=== PATIENT | male | born 1950 | race Caucasian/White ===

== ENCOUNTER → 2021-03-08 | Outpatient (CLI) | payer MEDICARE ==
--- NOTE | 2021-03-09 05:18 | CTL ---
EXAMINATION TYPE: CT Low Dose Lung DATE OF EXAM ORDERED: 03/08/2021 HISTORY: 70-year-old male Z87.891 Tobacco use/nicotine dependence. Lung cancer screening CT DLP: [address] CTDI: 3.29 mGy Automated exposure control for dose reduction was used. SCREENING VISIT: Baseline COMPARISON: Radiograph 08/14/2020 TECHNIQUE: Low dose computed tomography scan was performed through the chest with coronal and sagitta l reconstructions. CT DIAGNOSTIC QUALITY: Satisfactory FINDINGS: There is an area of 1.5 cm soft tissue nodularity within the subcutaneous adipose layer lower inner q uadrant of the right breast, axial image 34 series 3. Mild bilateral gynecomastia is also present. Heart normal size without pericardial effusion. LAD coronary artery calcifications are present. Promi nent epicardial fat pad. Ectatic ascending aorta 3.7 cm. Minimal atherosclerotic arch calcifications. Conventional arch vessel branching anatomy. Scattered nonenlarged mediastinal lymph nodes measuring up to 7 mm. No thoracic lymphadenopathy by CT size criteria. Mildly enlarged caliber to the main right and left pulmonary arteries measuring up to 2.9 cm may be s een with pulmonary arterial hypertension. Mild diffuse bronchial wall thickening. 2 adjacent subpleural pulmonary nodules anterolateral right upper lobe, axial image 81 measuring 6 mm and 4 mm. Additional plaque-like nodularity anterolateral left upper lobe, axial images 104 through 98. Nodules here measure up to 7 mm. No consolidation or pleural effusion. Spleen mildly enlarged at 14.3 cm. Artifacts from patient's large body habitus affecting the visualiz ed upper abdomen. Bones: Mild degenerative disc disease throughout the thoracic spine. Normal variant sternal foramen. IMPRESSION: 1. LungRADS 3S, probably benign. Subpleural nodularity in the bilateral upper lobes measuring up to 7 mm on baseline screening. 2. Mild diffuse bronchial wall thickening could represent bronchitis or chronic asthma. 3. Nonspecific 1.5 cm soft tissue nodularity lower inner quadrant right breast. Correlate with physic al exam findings to exclude a small mass. Ultrasound can also be considered. 4. Mild splenomegaly. CT LUNG RAD AND CT CHEST RECOMMENDATION: Lung-Rad 3 Probably Benign: 6 month follow-up LDCT. S Modifier (other clinically significant findings): S, possible 1.5 cm lower inner quadrant right desean ast nodule for which physical examination assessment is recommended and possible diagnostic mammograp hic workup should be considered.
== END | disposition home or self-care (01) ==
LOC: RADCTMAIN 16:33
PROVIDERS: ATTEND Internal Medicine Critical Care Medicine
DX: Z12.2 Encounter for screening for malignant neoplasm of respiratory organs (principal); R91.8 Other nonspecific abnormal finding of lung field; J98.09 Other diseases of bronchus, not elsewhere classified; Z87.891 Personal history of nicotine dependence
CPT/HCPCS: 71271

== ENCOUNTER → 2021-03-19 | Outpatient (CLI) | payer MEDICARE ==
--- NOTE | 2021-03-19 10:21 | USB ---
EXAMINATION TYPE: US breast complete RT DATE OF EXAM: 03/19/2021 COMPARISON: Mammogram 03/19/2021, CT 03/08/2021 HISTORY: Abnormal CT results, breast mass TECHNIQUE: Real-time linear array sonography is performed over the right breast with attention to the lower inner quadrant. FINDINGS: There is an oval hyperechoic area measuring 1.6 x 1.9 x 0.9 cm. There is some apparent shadowing dist al to the circumscribed mass. This is considered suspicious and biopsy is recommended. IMPRESSION: 1. CIRCUMSCRIBED OVAL MASS RIGHT BREAST 4:00 BC POSITION. 2. SUSPICIOUS FINDINGS. 3. BI-RADS 4 RECOMMENDATIONS: 1. ULTRASOUND-GUIDED CORE BIOPSY RIGHT BREAST LESION.
--- NOTE | 2021-03-19 12:18 | MM ---
Reason for exam: clinical finding. Physical Findings: Nurse did not find any significant physical abnormalities on exam. MG 3D Diag Mammo W/Cad JOSEPH Bilateral CC and MLO view(s) were taken. There is no discrete abnormality including area of concern on the right breast. These results were verbally communicated with the patient and result sheet given to the patient on 03/19/21. ASSESSMENT: Incomplete: need additional imaging evaluation, BI-RAD 0 RECOMMENDATION: Ultrasound of the right breast.
== END | disposition home or self-care (01) ==
LOC: RADMAMWWP 08:46
PROVIDERS: ATTEND Internal Medicine Critical Care Medicine
DX: N63.14 Unspecified lump in the right breast, lower inner quadrant (principal)
CPT/HCPCS: 77066; 76641; G0279; 77062

== ENCOUNTER → 2021-03-19 | Outpatient (CLI) | payer MEDICARE ==
--- NOTE | 2021-03-19 15:58 | P.GSHP ---
History of Present Illness H&P Date: 03/19/21 Chief Complaint: right breast lesion on ultrasound Melchor is a 70 year old white male seen in consultation for Dr. Toth regarding a right breast abnormal ultrasound. The patient underwent a low dose chest CT to screen for lung cancer as he is a smoker. This was his first chest CT no lesions of concern were noted in the thoracic cavity however a small lesion was noted in the right breast. He subsequently underwent a bilateral mammogram which was felt to be incomplete and an ultrasound of the right breast was prepped recommended. The ultrasound revealed a 1.9 x 1.6 cm lesion considered suspicious at the 4 o'clock position and ultrasound core biopsy was recommended. The patient does not feel any lumps masses or nodules of concern in either breast. He states approximately a week ago he did have some nipple discharge from the right side. Does not report any trauma to either breast. Caffeine: 2 to 3 pots per day Nicotine: One pack per day for 55 years chocolate: occasional alcohol: none drugs: none Family History: brother: of colon cancer Surgical History: gallbladder appy ankle tendon left knee replacement multiple surgeries for fractures on left lower leg cardiac cath umbilical hernia Medical History: type 2 diabetes lower extremity swelling numb toes Social history: Caffeine: 2-3 pots of coffee per day Nicotine: One pack per day for 55 years Alcohol: Negative Drugs: Negative - Constitutional Constitutional: Denies chills, Denies fever - EENT Comment: wears glasses Ears: bilateral: tinnitus Ears, nose, mouth and throat: Denies headache, Denies sore throat - Breasts Breasts: bilateral: as per HPI - Cardiovascular Cardiovascular: Reports shortness of breath, Denies chest pain - Respiratory Comment: smoker Respiratory: Reports cough - Gastrointestinal Gastrointestinal: Denies abdominal pain, Denies diarrhea, Denies nausea, Denies vomiting - Genitourinary (Male) Comment: urine stream slow and weak Genitourinary: Denies dysuria, Denies hematuria - Musculoskeletal Musculoskeletal: Reports as per HPI - Integumentary Integumentary: Denies pruritus, Denies rash - Neurological Comment: toes numb Neurological: Reports numbness, Denies weakness - Psychiatric Psychiatric: Denies anxiety, Denies depression - Endocrine Comment: diabetes - Hematologic/Lymphatic Comment: baby aspirin - Allergic/Immunologic Allergic/Immunologic: Reports seasonal allergies Medications and Allergies Home Medications Medication Instructions Recorded Confirmed Type Alfuzosin HCl [Uroxatral] 10 mg PO DAILY 03/19/21 03/19/21 History Aspirin 81 mg PO DAILY 03/19/21 03/19/21 History Furosemide [Lasix] 40 mg PO BID 03/19/21 03/19/21 History Potassium Chloride 10 meq PO DAILY 03/19/21 03/19/21 History glipiZIDE [Glucotrol] 10 mg PO DAILY 03/19/21 03/19/21 History Allergies Allergy/AdvReac Type Severity Reaction Status Date / Time cephalexin [From Keflex] Allergy Anaphylaxis Verified 03/19/21 15:21 Iodinated Contrast Media Allergy Rash/Hives Verified 03/19/21 15: lidocaine Allergy Rash/Hives Verified 03/19/21 15:21 Penicillins Allergy Anaphylaxis Verified 03/19/21 15: Sulfa (Sulfonamide Allergy Anaphylaxis Verified 03/19/21 15:21 Antibiotics) Surgical - Exam - General no distress - Eyes normal ocular movement - ENT normal mucosa - Neck trachea midline - Respiratory normal respiratory effort, clear to auscultation - Cardiovascular Heart Sounds: normal: S1, S2 - Abdomen Abdomen: soft - Genitourinary no masses in testicles testicles present - Integumentary Ecchymosis over lower extremities Dark nevus back Small subcutaneous nodule right upper abdomen - Musculoskeletal normal gait - Psychiatric oriented to time, oriented to person, oriented to place, speech is normal, memory intact Breast examination: Right breast multi-positional exam no dominant masses or nodules of concern Right axilla: No adenopathy of concern Left breast: No dominant masses or nodules of concern on multiple positional exam Left axilla: No adenopathy of concern Results Computed tomography scan of chest as well as ultrasound of breast reviewed with Dr. Lopez, nodule right breast approximately 1.9 cm at the 4 o'clock position suspicious Assessment and Plan Assessment: Impression: 1. Radiographic abnormality right breast/1.9 cm nodule on ultrasound recommend biopsy 2. Computed tomography scan of chest subpleural nodularity in the bilateral upper lobes measuring up to 7 mm Mild diffuse bronchial wall thickening Nonspecific 1.5 cm soft tissue breast mass Mild splenomegaly Recommendation lung. 3 probably benign 6 month follow-up low-dose CT 3. Nicotine use for 55 years 4. Diabetes Plan: 1. Ultrasound-guided core biopsy right breast nodularity 2. Continue follow-up as long as per Dr. Toth CC: Dr. Toth
[2021-03-19 16:53] VITALS: BP 103/71; PULSE 87; RESP 16; TEMP 98.3
== END ==
LOC: WWCWWP 14:50
PROVIDERS: ATTEND Surgery
DX: N63.10 Unspecified lump in the right breast, unspecified quadrant (principal); N63.20 Unspecified lump in the left breast, unspecified quadrant; J98.09 Other diseases of bronchus, not elsewhere classified; R16.1 Splenomegaly, not elsewhere classified; D22.5 Melanocytic nevi of trunk; E11.9 Type 2 diabetes mellitus without complications; Z79.84 Long term (current) use of oral hypoglycemic drugs; Z88.0 Allergy status to penicillin; Z88.1 Allergy status to other antibiotic agents; Z88.2 Allergy status to sulfonamides; Z91.041 Radiographic dye allergy status

== ENCOUNTER → 2021-04-06 | Day surgery (SDC) | payer MEDICARE ==
[2021-04-06 12:18] VITALS: RESP 18
[2021-04-06 13:43] VITALS: BP 112/73; PULSE 68; TEMP 97.9
--- NOTE | 2021-04-06 14:25 | USB ---
EXAMINATION TYPE: US biopsy breast VAD RT DATE OF EXAM: 04/06/2021 CLINICAL HISTORY: R92.8 ABNORMAL MAMMOGRAM. TECHNIQUE: Ultrasound guided core biopsy of right 4:00 breast. COMPARISON: NONE FINDINGS: The procedure of ultrasound guided core biopsy was explained to the patient. Benefits, alternatives, and risks were discussed. An informed consent was then obtained. The patient was placed in supine positioning for imaging and for the procedure. The overlying skin was prepped and draped in usual sterile fashion. Lidocaine buffered with bicarbonate was used as anesthetic into the skin and subcutaneous tissue up to area of concern in the right 4:00 breast Under ultrasound guidance, a 12-gauge vacuum assisted biopsy gun device was used to obtain 3 core samples. Following this, a biopsy clip was left in lesion. The patient tolerated the procedure well without any immediate complication. The patient was kept in the radiology department for short stay after the procedure and then discharged home in stable condition. IMPRESSION: Successful, uncomplicated ultrasound guided core biopsy of area of concern in the right 4:00 breast, full pathology results to follow. Pathology Results: Benign RIGHT BREAST, 4:00, ULTRASOUND GUIDED CORE BIOPSY: Hemangioma. Recommendation Follow up mammogram of the right breast in 6 months. FERNANDA
== END ==
LOC: RADUSWWP 11:50
PROVIDERS: ATTEND Surgery
DX: D18.09 Hemangioma of other sites (principal); R92.8 Other abnormal and inconclusive findings on diagnostic imaging of breast
CPT/HCPCS: 88305

== ENCOUNTER → 2021-04-16 | Outpatient (CLI) | payer MEDICARE ==
[2021-04-16 09:58] VITALS: BP 103/68; PULSE 74; RESP 16; TEMP 97.7
--- NOTE | 2021-04-16 10:29 | P.PN ---
Progress Note - Text Progress Note Date: 04/16/21 Melchor is a 70 year old male seen in consultation by Dr. Toth regarding a right breast abnormal ultrasound. The patient had undergone a low-dose chest CT to screen for lung cancer as he is a smoker. This was first chest CT that he had an this revealed no lesions of concern in the thoracic cavity however lesion was seen in the right breast. Mammogram and ultrasound followed which led to a core biopsy of a 1.9 x 1.6 cm lesion. Pathology revealed a hemangioma. The patient tolerated the procedure without difficulty. He is completely asymptomatic from this and will be followed conservatively. Examination: Mild ecchymosis right breast biopsy site no evidence of any infection Impression: Hemangioma right breast/asymptomatic Plan: Repeat right breast ultrasound in 6 months with physician exam at that time CC: DR. Toth
== END ==
LOC: WWCWWP 09:40
PROVIDERS: ATTEND Surgery
DX: D18.09 Hemangioma of other sites (principal); Z88.1 Allergy status to other antibiotic agents; Z91.041 Radiographic dye allergy status; Z88.4 Allergy status to anesthetic agent; Z88.0 Allergy status to penicillin; Z88.2 Allergy status to sulfonamides

== ENCOUNTER → 2021-08-23 | Outpatient (CLI) | payer MEDICARE ==
--- NOTE | 2021-08-23 10:51 | US ---
EXAMINATION TYPE: US venous doppler duplex LE DATE OF EXAM: 08/23/2021 10:35 AM COMPARISON: NONE CLINICAL HISTORY: R60.0 EDEMA. Leg swelling SIDE PERFORMED: Bilateral TECHNIQUE: The lower extremity deep venous system is examined utilizing real time linear array sonog ly with graded compression, doppler sonography and color-flow sonography. VESSELS IMAGED: Common Femoral Vein Deep Femoral Vein Greater Saphenous Vein * Femoral Vein Popliteal Vein Small Saphenous Vein * Proximal Calf Veins (* superficial vessels) Right Leg: Negative for DVT Left Leg: Negative for DVT IMPRESSION: No evidence for DVT at this time.
== END | disposition home or self-care (01) ==
LOC: RADUSWWP 10:09
PROVIDERS: ATTEND Family Medicine
DX: R60.0 Localized edema (principal); M79.89 Other specified soft tissue disorders
CPT/HCPCS: 93970

== ENCOUNTER → 2021-11-02 | Outpatient (CLI) | payer MEDICARE | LOC: CPPFTMAIN 11:16 | PROVIDERS: ATTEND Internal Medicine Critical Care Medicine | DX: J44.9 Chronic obstructive pulmonary disease, unspecified (principal); Z88.1 Allergy status to other antibiotic agents; Z91.041 Radiographic dye allergy status; Z88.0 Allergy status to penicillin; Z88.2 Allergy status to sulfonamides; Z88.4 Allergy status to anesthetic agent | CPT/HCPCS: 94060; 94726; 94729 ==

== ENCOUNTER → 2022-03-14 | Outpatient (CLI) | payer MEDICARE ==
--- NOTE | 2022-03-14 16:19 | CTL ---
EXAMINATION TYPE: CT Low Dose Lung DATE OF EXAM ORDERED: 03/14/2022 HISTORY: . Lung cancer screening CT DLP: 146.[address] CTDI: 4.30 mGy Automated exposure control for dose reduction was used. SCREENING VISIT: Follow-up COMPARISON: 03/08/2021 TECHNIQUE: Low dose computed tomography scan was performed through the chest at 1 mm thick sections a nd reconstructed images in the coronal plane at [address] DIAGNOSTIC QUALITY: Satisfactory FINDINGS: LUNG NODULES: None. LUNGS: COPD: Severity: None Fibrosis: Severity: None Lymph nodes: None Other findings: None RIGHT PLEURAL SPACE: Effusion: None Calcification: None Thickening: None Pneumothorax: None LEFT PLEURAL SPACE: Effusion: None Calcification: None Thickening: None Pneumothorax: None HEART: Heart Size: Normal Coronary calcification: Mild Pericardial effusion: None OTHER FINDINGS: Upper abdomen: Focal asymmetry lower inner quadrant right breast appears to have been biopsied. Bony thorax: Normal Supraclavicular region: Normal Other: Ascending thoracic aorta at the level the main pulmonary artery measures 4.0 cm. The main pul monary artery at the bifurcation measures 2.7 cm. IMPRESSION: 1. Benign findings no suspicious changes to suggest primary or metastatic findings. FOLLOW UP CT CHEST RECOMMENDATION: Follow-up low-dose CT chest [address] LUNG RAD: 2
== END | disposition home or self-care (01) ==
LOC: RADCTMAIN 14:04
PROVIDERS: ATTEND Internal Medicine Critical Care Medicine
DX: Z12.2 Encounter for screening for malignant neoplasm of respiratory organs (principal); Z87.891 Personal history of nicotine dependence
CPT/HCPCS: 71271